=== PATIENT | male | born 1975 | race African-American/Black ===

== ENCOUNTER 2025-05-09 16:43 | Emergency (ER) | payer SELFPAY ==
[~2025-05-09] VITALS: Ht 175.3 cm; Wt 85.0 kg
[2025-05-09 16:57] VITALS: BP 108/74; TEMP 37.2; O2SAT 99
[2025-05-09 16:58] VITALS: PULSE 91; RESP 18; O2SAT 100
[2025-05-10] MEDS ORDERED: LIDO700A30 TP (12:31)
[2025-05-10] MEDS ORDERED: CYCL10TA21 MT (12:31)
[2025-05-10] MEDS ORDERED: IBUP-1455 MT (12:31)
== END 2025-05-09 20:08 | disposition left against medical advice (07) ==
LOC: ER 16:43
DX: R51.9 Headache, unspecified (principal)
CPT/HCPCS: 99281; Z7610

== ENCOUNTER 2025-05-10 09:59 | Emergency (ER) | payer SELFPAY ==
[~2025-05-10] VITALS: Ht 172.7 cm; Wt 91.0 kg
[2025-05-10 10:08] VITALS: O2SAT 100
[2025-05-10] MEDS: IBUPROFEN 600MG TABLET PO ONE (11:45)
[2025-05-10] MEDS: LIDOCAINE 5% PATCH TOP STA (11:46)
[2025-05-10] MEDS ORDERED: CYCL10TA21 MT (12:31)
[2025-05-10] MEDS ORDERED: LIDO700A30 TP (12:31)
[2025-05-10] MEDS ORDERED: IBUP-1455 MT (12:31)
[2025-05-10 13:12] VITALS: BP 134/84; PULSE 69; RESP 16; TEMP 36.7; O2SAT 100
== END 2025-05-10 13:13 | disposition home or self-care (01) ==
LOC: ER 09:59
DX: M48.02 Spinal stenosis, cervical region (principal); Z79.899 Other long term (current) drug therapy
CPT/HCPCS: 72040; 99283